=== PATIENT | female | born 1965 | race Caucasian/White ===

== ENCOUNTER → 2017-01-24 | Outpatient (CLI) | payer BC ==
[~2017-01-24] MED LIST: AMOX-355 PO; BCP PO; CETI10CA8 PO; DOCU-238 PO; DOCU100T7 PO; HYDR12.56 PO; LEVO1TAB72 PO; LORA10TA7 PO; METR500T21; MULT1CAP27 PO; OMEP20CA6 PO; PANT40TA2 PO; PANT40TA3 PO; SULF-222; SULF1TAB35
--- NOTE | 2017-01-24 15:00 | Diagnostic Imaging Report ---
PROCEDURE: CT head without contrast. TECHNIQUE: Multiple contiguous axial images were obtained through the brain without the use of intravenous contrast. INDICATION: Numbness and tingling . FINDINGS: There is no intracranial hemorrhage, edema or mass effect. The brain parenchyma appears unremarkable. No hydrocephalus. The visualized portions of the orbits and paranasal sinuses appear unremarkable. IMPRESSION: Unremarkable study. Dictated by: Dictated on workstation # [id number]
[2017-01-24 15:13] LABS: MEAN PLATELET VOLUME 8.4 FL (7.4-10.4); RED BLOOD COUNT 4.56 10^6/uL (4.35-5.85); RED CELL DISTRIBUTION WIDTH 13.1 % (10.0-14.5); WHITE BLOOD COUNT 7.3 10^3/uL (4.3-11.0)
[2017-01-24 15:17] LABS: BILIRUBIN,URINE NEGATIVE (NEGATIVE); KETONES,URINE 1+ (NEGATIVE); LEUKOCYTE ESTERASE ,URINE 1+ (NEGATIVE); NITRITE,URINE NEGATIVE (NEGATIVE); PH,URINE 5 (5-9); PROTEIN,URINE 2+ (NEGATIVE); UROBILINOGEN,URINE NORMAL (NORMAL)
[2017-01-24 15:32] LABS: ALANINE AMINOTRANSFERASE 13 U/L (0-55); ALBUMIN 4.5 GM/DL (3.2-4.5); ANION GAP 8 MMOL/L (5-14); ASPARTATE AMINO TRANSFERASE 15 U/L (5-34); BILIRUBIN,TOTAL 0.5 MG/DL (0.1-1.0); BLOOD UREA NITROGEN 14 MG/DL (7-18); BUN/CREATININE RATIO 18; CALCIUM 10.8 MG/DL (8.5-10.1); CARBON DIOXIDE 25 MMOL/L (21-32); CHLORIDE 107 MMOL/L (98-107); GFR ESTIMATED > 60; GLUCOSE 82 MG/DL (70-105); SODIUM 140 MMOL/L (135-145); TOTAL PROTEIN 8.5 GM/DL (6.4-8.2)
== END ==
LOC: RAD 14:17
PROVIDERS: ATTEND Physician Assistant
DX: R42 Dizziness and giddiness (principal); R51 Headache
CPT/HCPCS: 36415; 70450; 80053; 81000; 85027

== ENCOUNTER → 2017-02-01 | Outpatient (CLI) | payer BC ==
--- NOTE | 2017-02-04 10:36 | Diagnostic Imaging Report ---
Bilateral screening mammogram 2D views with tomosynthesis The current study was also evaluated with a Computer Aided Detection (CAD) system. Indication: Screening. No current complaints stated on the questionnaire. COMPARISON: 01/06/16. FINDINGS: The breasts are composed of heterogeneously dense parenchyma which may decrease mammographic sensitivity. No mass, architectural distortion or suspicious cluster of calcification seen. Benign-appearing calcifications are noted. Allowing for technique and positional differences, no suspicious change is seen. IMPRESSION: No significant change. ACR BI-RADS Category 2: Benign findings. Result letter will be mailed to the patient. Note: At least 10% of breast cancer is not imaged by mammography. Dictated by: Dictated on workstation # [id number]
== END ==
LOC: RAD 12:44
PROVIDERS: ATTEND Obstetrics & Gynecology
DX: Z12.31 Encounter for screening mammogram for malignant neoplasm of breast (principal)
CPT/HCPCS: 77067

== ENCOUNTER 2017-04-01 11:59 | Outpatient (CLI) | payer BC ==
[~2017-04-01] VITALS: Ht 162.6 cm; Wt 90.4 kg
[2017-04-01 12:06] VITALS: BP 153/93
[2017-04-01] MEDS ORDERED: DOCU100T2 PO (12:09)
[2017-04-01 13:01] LABS: BILIRUBIN,URINE NEGATIVE (NEGATIVE); KETONES,URINE NEGATIVE (NEGATIVE); LEUKOCYTE ESTERASE ,URINE 2+ (NEGATIVE); NITRITE,URINE NEGATIVE (NEGATIVE); PH,URINE 6 (5-9); PROTEIN,URINE NEGATIVE (NEGATIVE); UROBILINOGEN,URINE NORMAL (NORMAL)
[2017-04-01 13:01] LABS: BASOPHILS % (AUTO) 0 % (0-10); EOSINOPHILS # (AUTO) 0.1 10^3/uL (0.0-0.3); EOSINOPHILS % (AUTO) 1 % (0-10); LYMPHOCYTES # (AUTO) 1.5 X 10^3 (1.0-4.0); LYMPHOCYTES % (AUTO) 24 % (12-44); MEAN CORPUSCULAR HEMOGLOBIN 30 PG (25-34); MEAN CORPUSCULAR HGB CONC 33 G/DL (32-36); MEAN CORPUSCULAR VOLUME 90 FL (80-99); MEAN PLATELET VOLUME 8.9 FL (7.4-10.4); MONOCYTES # (AUTO) 0.3 X 10^3 (0.0-1.0); MONOCYTES % (AUTO) 4 % (0-12); NEUTROPHILS # (AUTO) 4.5 X 10^3 (1.8-7.8); NEUTROPHILS % (AUTO) 71 % (42-75); PLATELET COUNT 384 10^3/uL (130-400); RED CELL DISTRIBUTION WIDTH 14.2 % (10.0-14.5); WHITE BLOOD COUNT 6.4 10^3/uL (4.3-11.0)
[2017-04-01 13:08] LABS: WBC,URINE 50-100 /HPF
== END 2017-04-01 15:17 ==
LOC: PREOP 11:59
PROVIDERS: ATTEND Obstetrics & Gynecology
DX: Z01.812 Encounter for preprocedural laboratory examination (principal); Z11.2 Encounter for screening for other bacterial diseases; D06.9 Carcinoma in situ of cervix, unspecified; N39.3 Stress incontinence (female) (male); R82.99 Other abnormal findings in urine
CPT/HCPCS: 36415; 81000; 85025; 86850; 86900; 86901; 87081; 87088

== ENCOUNTER 2017-04-09 09:53 | Day surgery (SDC) | payer BC ==
[~2017-04-09] VITALS: Ht 162.6 cm; Wt 90.4 kg
[~2017-04-09 09:53] MED LIST changes: +DOCU100T2 PO
[2017-04-09 10:00] VITALS: BP 147/87
[2017-04-09] MEDS ORDERED: metroNIDAZOLE 500 MG/100 ML IVPB (PRE-MIX) IV ONE (10:15)
[2017-04-09] MEDS ORDERED: ceFAZolin 1 GM/NS 50 ML IVPB IV ONE ×2 (10:15)
[2017-04-09] MEDS ORDERED: CATHETER FLUSH 10 ML SYR IV PRN (10:15)
[2017-04-09] MEDS: LACTATED RINGERS 1,000 ML IV PRN ×3 (10:20→13:45)
--- NOTE | 2017-04-09 10:47 | Progress Note-Pre Operative ---
Pre-Operative Progress Note H&P Reviewed The H&P was reviewed, patient examined and no changes noted. Date Seen by Provider: Apr 09, 2017 Time Seen by Provider: 10:40 Date H&P Reviewed: Apr 09, 2017 Time H&P Reviewed: 10:40 Pre-Operative Diagnosis: CIS of cervix, stress incontinence HANY BEY DO Apr 09, 2017 10:47
[2017-04-09] MEDS ORDERED: FAMOTIDINE 20MG/2ML IV (PEPCID) ONE (11:03)
[2017-04-09] MEDS ORDERED: FAMOTIDINE 20MG/2ML IV (PEPCID) IV ONE (11:15)
[2017-04-09] MEDS ORDERED: DEXAMETHASONE 10 MG/ML (DECADRON) 1 ML VIAL ONE (12:25)
[2017-04-09] MEDS ORDERED: SEVOFLURANE (ULTANE) 15 ML INHAL SOLN ONE ×3 (12:25→15:20)
[2017-04-09] MEDS ORDERED: LIDOCAINE PF 2% 5 ML (XYLOCAINE) VIAL ONE (12:25)
[2017-04-09] MEDS ORDERED: ONDANSETRON 4 MG/2 ML (SDV) Z0FRAN ONE (12:25)
[2017-04-09] MEDS ORDERED: ROCURONIUM 50 MG/5 ML (ZEMURON) VIAL IV ONE ×2 (12:25→14:22)
[2017-04-09] MEDS ORDERED: proPOfol 200 MG/20 ML (DIPRIVAN) VIAL IV ONE (12:25)
[2017-04-09] MEDS ORDERED: MIDAZOLAM 2 MG/2 ML (VERSED) VIAL ONE (12:26)
[2017-04-09] MEDS ORDERED: fentaNYL INJECTION 250 MCG/5 ML AMP ONE (12:26)
[2017-04-09] MEDS ORDERED: BUP/EPI 0.5% 1:200,000 (MARCAINE) 10ML VIAL IJ ONE (12:28)
[2017-04-09] MEDS ORDERED: VASOPRESSIN INJECTION 20 UNIT/ML VIAL ONE (12:29)
[2017-04-09] MEDS ORDERED: NS (IVPB) 100 ML ONE (12:29)
[2017-04-09] MEDS ORDERED: ESTROGENS CONJ. CREAM 30 GM (PREMARIN) TUBE ONE (12:29)
[2017-04-09] MEDS ORDERED: ceFAZolin INJECTION 1,000 MG in NS (IVPB) 50 ML IV ONE (14:00)
[2017-04-09] MEDS ORDERED: metroNIDAZOLE 500MG/100ML IVPB 100 ML IV ONE (14:00)
[2017-04-09] MEDS ORDERED: NEOSTIGMINE (BLOXIVERZ ) 1 MG/1ML 10 ML VIAL ONE (14:23)
[2017-04-09] MEDS ORDERED: GLYCOPYRROLATE 0.2 MG/ML (ROBINUL) 2 ML VIAL ONE ×2 (14:23→15:54)
[2017-04-09] MEDS ORDERED: KETOROLAC 30 MG/ML VIAL ONE (15:17)
[2017-04-09] MEDS ORDERED: KETOROLAC 30 MG/ML VIAL IV PRN (15:30)
[2017-04-09] MEDS ORDERED: DOCUSATE SODIUM 100 MG (COLACE) CAP PO PRN (15:30)
[2017-04-09] MEDS ORDERED: ANTACID SUSP 30 ML UDC (MYLANTA) PO PRN (15:30)
[2017-04-09] MEDS ORDERED: SIMETHICONE 80 MG (MYLICON) CHEW PO PRN (15:30)
--- NOTE | 2017-04-09 15:35 | Operative Report ---
Operative Report Date of Procedure/Surgery Apr 09, 2017 Surgeon (s) HANY BEY DO Mine Deputy (s): Traci Eagle APRN Post-Operative Diagnosis CIS cervix, Extensive enteropelvic adhesions, probable previous PID with TOA VESTA Procedure Performed RaTH, BSO, BUTCH, solyx pubovaginal sling Description of Procedure Anesthesia Type: General Estimated blood loss (mL): 50 Specimen(s) collected/removed uterus, b ilateral tubes and ovaries Description of the Procedure After informed consent was obtained, patient was taken into the operating room where general anesthetic was found to be adequate. She was prepped and draped in the usual sterile fashion in the dorsal lithotomy position. A French catheter was placed. A speculum was placed in the vagina. The cervix was visualized and was prolapsed to the introitus. The anterior lip was grasped with a sharp toothed tenaculum. The uterus was sounded and depth was approximately 6 centimeters. I placed the Lesly device. And then set the Lesly to 6 cm and a 3.0 cm collar was advanced over the cervix. I inserted the Lesly without difficulty, inflating the balloon and securing it around the fornix of the cervix. The collar was then secured with sutures at 12 o'clock. Attention was then turned to the patient's abdomen. A supraumbilical incision was made about 8 mm. A Veress needle was inserted and I had difficulty confirming intraabdominal placement, but was eventually able to confirm with a drop in pressure and the saline drop test. I then insufflated the abdomen to a maximum of 15 mmHg with warmed CO2 gas. I then placed an 8 mm trocar and then the Da Marilyn camera and intraperitoneal placement was confirmed. I then determined the procedure could be continued robotically. The first robotic port was placed about 15 cm lateral to the right and left of the umbilical placement and slightly inferior. These are both 8 mm trocars. These were placed under direct visualization of the laparoscope. 0.25% Marcaine was injected prior to placement of all trocars. When all placements were confirmed, the patient was placed in steep Trendelenburg allowing adequate visualization and the robot was brought in for docking. The docking was accomplished without difficulty. A survey of the pelvis confirmed the above mentioned findings. There were adhesions in the left pelvis overlying the infundibulopelvic ligament that were taken down prior to starting the hysterectomy. These included the left tube and ovary and the colon. They also obliterated the culdesac but were filmy. She had been treated for diverticulitis within the last few months and are likely due to this. The left ovary appeared normal once the extensive adhesions were taken down, but because of the adherence to the colon, I suspect this was the suspected ovarian cyst. There was possible an old tuboovarian abscess as well with mild hydrosalpinx included in the tuboovarian, colon adhesions. These were all taken down bluntly and there was good hemostasis. Once I was able to visualize the round ligaments bilaterally and grasped them and cauterized with bipolar cautery and then cut with my jeff. At this point, I then did bilateral salpingoophorectomy. I clamped the infundibulopelvic ligaments bilaterally with the bipolar forceps. I sealed the vessel and transected bilaterally using the bipolar cautery and then cut with the monopolar jeff. I then moved my dissection to the posterior leaves of the broad ligament. I dissected the posterior leaves of the broad ligament off the uterine arteries skeletonizing them bilaterally. I then took a second clamp with the bipolar cautery and with the jeff, transected the vessels away from the lateral aspect to the cervical stroma. I dissected the anterior peritoneum off the lower uterine segment. I continually pushed the bladder back and I took excessively great care and I was eventually able to dissect the vesicouterine peritoneum off the lower uterine segment. I then dissected in a V fashion towards the midline between the uterosacral ligaments. This allowed me to skeletonize the uterine vessels bilaterally. The balloon on the LESLY was insufflated. This allowed me to see the LESLY circumferentially. I then performed a colpotomy anteriorly and then amputate with cervix away from the vaginal fornix. I then continued the colpotomy circumferentially. Once this was performed, the assistant professor of spanish removed the uterus through the vagina. A sponge was left in the vagina to maintain pneumoperitoneum. I then began closure of the vaginal cuff. The uterus was left in the vagina to maintain pneumoperitoneum. I closed the apices of the vaginal cuff with 2-0 Vicryl V lock sutures with a colposuspension through the uterosacral ligaments. This suspended the apices of the vaginal cuff. I extended this to the midline from both sides and overlapped the V lock sutures in the midline. Excellent closure is noted and hemostasis is achieved. All the needles were removed from the patient's abdomen. Patient was now repositioned for the vaginal portion of the procedure. The Lonestar retractor was placed and sutured into place. The anterior vaginal epithelium was grasped in the midline with an Allis clamp. The anterior vaginal epithelium was injected with dilute vasopressin. A 1 cm incision was made in the suburethral space with a scalpel about 1.5 cm from the urethral meatus. I dissected bilaterally to the obturator membranes and then inserted the Solyx bilaterally and then tightened under the midurethra. I did a cystoscopy which was negative. There was bilateral urethral efflux of urine. I then kept 300 ml in the bladder and did a Cred. There was minimal leakage. The sling laid gently under the urethra and was not too tight. There was no intravesicular pathology. The incision was closed with 4-0 Monocryl in a running fashion. French was reinserted. Vaginal pack with Estrace cream was placed. Patient was awakened and taken to the recovery room in stable condition. Following the case, instrument counts were correct. The patient was repositioned in the supine position and awakened from general anesthesia without difficulty. She was taken to recovery in stable condition. She will be observed overnight. Findings of the Procedure shortened cervix consistent with previous LEEP procedure. No obvious lesions. Normal uterus. Adhesions of the left pelvis and culdesac described in the operative portion of the dictation. Allergies and Home Medications Allergies Coded Allergies: No Known Drug Allergies (Unverified , 04/01/17) Home Medications Docusate Sodium 100 Mg Tablet, 100 MG PO DAILY PRN for CONSTIPATION-1ST LINE, ( Reported) Estradiol 1 Each Patch.tdwk, 1 EACH TD Weekly, #12 Ref 4 Prescribed by: HANY BEY on 04/10/17 0853 Ibuprofen 600 Mg Tablet, 600 MG PO Q6H PRN for PAIN-MILD, #60 Prescribed by: HANY BEY on 04/10/17 0830 Pantoprazole Sodium 40 Mg Tablet.dr, 40 MG PO DAILY, (Reported) Simethicone 80 Mg Tab.chew, 40 MG PO TID PRN for INDIGESTION, #60 Prescribed by: HANY BEY on 12/20/17 0830 [Hydrocodone Bit/Acetaminophen] 1 EA TABLET, 1-2 EA PO Q6H PRN for PAIN- MODERATE TO SEVERE, #30 Prescribed by: HANY BEY on 04/10/17829 HANY BEY DO Apr 09, 2017 15:35
[2017-04-09] MEDS ORDERED: morphine INJ 10 MG/ML 1ML (SYR OR VIAL) ONE (15:42)
[2017-04-09] MEDS ORDERED: ESTRADIOL 0.1 MG PATCH (CLIMARA) TD ONE (15:45)
[2017-04-09] MEDS ORDERED: ONDANSETRON 4 MG/2 ML (SDV) Z0FRAN IVP PRN (16:00)
[2017-04-09] MEDS ORDERED: morphine INJ 10 MG/ML 1ML (SYR OR VIAL) IVP PRN (16:00)
[2017-04-09] MEDS ORDERED: HYDROmorphone (DILAUDID) 2 MG/ML VIAL IVP PRN (16:00)
[2017-04-09 17:15] VITALS: BP 129/76
[2017-04-09] MEDS: LACTATED RINGERS 1,000 ML IV SCH (17:15)
[2017-04-09] MEDS: ONDANSETRON 4 MG/2 ML (SDV) Z0FRAN IV PRN (17:30)
[2017-04-09] MEDS: HYDROcodone/APAP 7.5 MG/325 MG (LORTAB, LORCET PLUS) TABLET PO PRN (18:31)
[2017-04-09 20:20] VITALS: BP 117/71
[2017-04-09] MEDS: KETOROLAC 30 MG/ML VIAL IVP PRN (22:50)
[2017-04-10 00:54] VITALS: BP 110/69
[2017-04-10] MEDS: HYDROcodone/APAP 7.5 MG/325 MG (LORTAB, LORCET PLUS) TABLET PO PRN (00:54)
[2017-04-10] MEDS: LACTATED RINGERS 1,000 ML IV SCH (00:54)
[2017-04-10 05:00] VITALS: BP 112/72
[2017-04-10] MEDS: KETOROLAC 30 MG/ML VIAL IVP PRN (05:05)
[2017-04-10] MEDS: ONDANSETRON 4 MG/2 ML (SDV) Z0FRAN IV PRN (06:19)
[2017-04-10] MEDS ORDERED: IBUPROFEN 600 MG (MOTRIN) TAB PO PRN (08:15)
--- NOTE | 2017-04-10 08:29 | Progress Note-Standard ---
Standard Progress Note Progress Notes/Assess & Plan Date Seen by Provider: Apr 10, 2017 Time Seen by Provider: 08:30 Progress/Assessment & Plan Vital Sign - Last 12Hours 04/10/17 04/10/17 04/10/17 00:54 01:27 05:00 Temp 99.0 98.7 Pulse 72 55 Resp 18 18 B/P (MAP) 110/69 (83) 112/72 (85) Pulse Ox 95 96 O2 Delivery Room Air Room Air Room Air Intake and Output 04/10/17 00:00 Intake Total 1673 ml Output Total 180 ml Balance 1493 ml Mild nausea but tolerating diet. No void since removal of catheter Plan dc home once voids. HANY BEY DO Apr 10, 2017 08:29
[2017-04-10] MEDS ORDERED: SIME80TA16 PO (08:30)
[2017-04-10] MEDS ORDERED: IBUP-1773 PO (08:30)
[2017-04-10] MEDS ORDERED: Hydrocodone Bit/Acetaminophen PO (08:30)
--- NOTE | 2017-04-10 08:32 | Discharge Inst-Women's Service ---
Discharge Inst-Women's Serv Depart Medication/Instructions New, Converted or Re-Newed RX: RX on Chart Final Diagnosis CIS of cervix VESTA Consults/Follow Up Additional Follow Up: Yes (1-2 weeks with Traci/Jagdish/ 10-12 weeks with Jagdish) Activity Activity: Activity as Tolerated Driving Instructions: No Driving for 1 Week NO SMOKING: NO SMOKING Nothing Inside Vagina: No Douching, No Deloit, No Tampons Diet Discharge Diet: No Restrictions Symptoms to Report to DrMoises: Swelling Increased, Bleeding Excessive, Pain Increased, Fever Over 101 Degrees F, Vaginal Bleeding Increase, Cramps in Feet or Legs, Vaginal Discharge Foul For Any Problems or Questions: Contact Your Physician Skin/Wound Care Infection Signs and Symptoms: Increased Redness, Foul Odor of Wound, Increased Drainage, Skin Itchy or Has a Rash, Increased Swelling Operative Area Clean and Dry: Keep Incision Clean/Dry, You May Remove Bandage ( keep dressings in place 3 days and then remove. If soiled or wet, remove and redress) Stitches/Lambert/Dermabond: Dermabond Bathing Instructions: HANY Colvin DO Apr 10, 2017 08:32
[2017-04-10 08:45] VITALS: BP 113/72
[2017-04-10] MEDS ORDERED: ESTR1PAT73 TD (08:53)
== END 2017-04-10 12:15 | disposition home or self-care (01) ==
LOC: SDC 09:53 → WS 16:14 → SDC 04-10 12:15
PROVIDERS: ATTEND Obstetrics & Gynecology
DX: N87.0 Mild cervical dysplasia (principal); D27.1 Benign neoplasm of left ovary; N80.0 Endometriosis of uterus; D25.1 Intramural leiomyoma of uterus; N39.46 Mixed incontinence; N73.6 Female pelvic peritoneal adhesions (postinfective); N92.1 Excessive and frequent menstruation with irregular cycle
CPT/HCPCS: 84703; 94664

== ENCOUNTER → 2018-02-07 | Outpatient (CLI) | payer BC ==
[~2018-02-07] MED LIST changes: +ESTR1PAT73 TD; +Hydrocodone Bit/Acetaminophen PO; +IBUP-1773 PO; +SIME80TA16 PO
--- NOTE | 2018-02-07 19:00 | Diagnostic Imaging Report ---
INDICATION: Routine screening. Comparison is made with prior mammogram from 02/01/2017 and 01/06/2016. 2-D and 3-D bilateral screening mammography was performed with CAD. The current study was also evaluated with a Computer Aided Detection (CAD) system. FINDINGS: Both breasts are heterogeneously dense, limiting the sensitivity of mammography. There are benign calcifications scattered throughout both breasts. No mass or malignant-appearing microcalcifications are seen. The axillae are unremarkable. IMPRESSION: No mammographic features suspicious for malignancy are identified. ACR BI-RADS Category 2: Benign findings. Result letter will be mailed to the patient. Note: At least 10% of breast cancer is not imaged by mammography. Dictated by: Dictated on workstation # [id number]
== END ==
LOC: RAD 11:12
PROVIDERS: ATTEND Obstetrics & Gynecology
DX: Z12.31 Encounter for screening mammogram for malignant neoplasm of breast (principal)
CPT/HCPCS: 77067

== ENCOUNTER → 2019-03-17 | Outpatient (CLI) | payer BC ==
[~2019-03-17] MED LIST changes: +METR-145; -METR500T21
--- NOTE | 2019-03-18 08:13 | Diagnostic Imaging Report ---
Digital mammogram. Bilateral screening This study was compared to the prior exams of 02/07/2018, 02/01/2017 and 01/06/2016. At this time there are no current complaints. The current study was also evaluated with a Computer Aided Detection (CAD) system. FINDINGS: The fibroglandular tissue in both breasts is heterogeneously dense. This does limit the sensitivity of this exam. Overall, there does not appear to have been any significant change when compared to the prior study. No primary or secondary sign of malignancy is noted. IMPRESSION: There is no radiographic evidence for malignancy. ACR BI-RADS Category 1: Negative. Result letter will be mailed to the patient. Note: At least 10% of breast cancer is not imaged by mammography. Dictated by: Dictated on workstation # [id number]
== END ==
LOC: RAD 12:43
PROVIDERS: ATTEND Obstetrics & Gynecology
DX: Z12.31 Encounter for screening mammogram for malignant neoplasm of breast (principal)
CPT/HCPCS: 77067

== ENCOUNTER → 2019-08-05 | Outpatient (CLI) | payer BC ==
--- NOTE | 2019-08-05 13:57 | Diagnostic Imaging Report ---
INDICATION: Shortness of breath COMPARISON: 02/26/2016 TECHNIQUE: Frontal and lateral radiographs of the chest dated 08/05/2019. FINDINGS: The cardiac silhouette is within normal limits in size. No significant pulmonary vascular congestion. The lungs are clear. No pleural effusion. No pneumothorax. No acute osseous abnormality. IMPRESSION: Stable examination without acute cardiopulmonary abnormality. Dictated by: Dictated on workstation # [id number]
== END ==
LOC: RAD 13:04
PROVIDERS: ATTEND Nurse Practitioner
DX: R06.02 Shortness of breath (principal)
CPT/HCPCS: 71046

== ENCOUNTER → 2019-08-10 | Outpatient (CLI) | payer BC ==
--- NOTE | 2019-08-10 10:49 | Diagnostic Imaging Report ---
INDICATION: Abdominal pain. PROCEDURE: Ultrasound abdomen complete. TECHNIQUE: Multiple Real-time grayscale images were obtained of the abdomen in various projections. FINDINGS: The liver measures 15 cm in length without evidence of focal lesion. The gallbladder has a normal appearance. There is no evidence of biliary ductal dilatation. No pancreatic, abdominal aortic, or inferior vena caval abnormality is identified. The spleen has a normal appearance and there is no evidence of free fluid. Note is made of an approximate 7.6 x 5.6 x 4.8 cm left renal cyst. IMPRESSION: No acute abnormality is seen within the abdomen. Note is made of a dominant left renal cyst. There is no free fluid or biliary ductal dilatation. Dictated by: Dictated on workstation # [id number]
== END ==
LOC: RAD 07:30
PROVIDERS: ATTEND Nurse Practitioner
DX: N28.1 Cyst of kidney, acquired (principal)
CPT/HCPCS: 76700

== ENCOUNTER 2019-08-13 08:03 | Outpatient (CLI) | payer BC ==
[~2019-08-13] VITALS: Ht 162 cm; Wt 72.0 kg
[2019-08-13] MEDS ORDERED: LORA10TA7 PO ×2 (09:35)
[2019-08-13] MEDS ORDERED: DOCU100C37 PO ×2 (09:35)
[2019-08-13] MEDS ORDERED: MULT-1136 PO ×2 (09:35)
== END 2019-08-13 10:04 | disposition home or self-care (01) ==
LOC: PREOP 08:03
PROVIDERS: ATTEND Surgery
DX: Z01.818 Encounter for other preprocedural examination (principal)

== ENCOUNTER 2019-08-14 09:28 | Day surgery (SDC) | payer BC ==
[2019-08-14] VITALS (13 sets, daily range): BP systolic 93–150; BP diastolic 54–77
[~2019-08-14] VITALS: Ht 162 cm; Wt 72.0 kg
[~2019-08-14 09:28] MED LIST changes: +DOCU100C37 PO; +MULT-1136 PO; +NS IV 500 ML 500 ML ONE
--- OUTSIDE RECORDS SUMMARY | 2019-08-14 09:33 | XMS REPORT ---
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 Phone HENRI RAMON Unavailable HANY BEY DO Unavailable Unavailable Allergies Normalized Allergy Reported Date of Reaction(s) Care Provider Facility Allergy Type classification allergen Allergy Onset DA (7 Unclassified No Known Drug 04-06-2015 - no information HANY BEY , Not Available sources.) Allergies DO (04802) Medications No Information Problems Active Problems Problem Normalized Date of Normalized Normalized Provider Fac ility Classification Problem(s) Problem Problem Problem Sta tus Onset/Resoluti Duration on NEGATED Endometriosis Chronic Active no name no infor mation no of uterus information (2 sources.) NEGATED Excessive and Chronic Active no name no infor mation no frequent information (2 menstruation sources.) with irregular cycle NEGATED Gastro-esophag Chronic Active MORRISKI KIDO , No t Available no eal reflux MD (13273) information (2 disease sources.) without esophagitis NEGATED Mixed Chronic Active no name no informatio n no incontinence information (2 sources.) Other Other Episodic Active HANY BEY , Not Avail able screening for screening DO (02668) suspected mammogram conditions Translations: (not mental [ ENCNTR disorders or SCREEN infectious MAMMOGRAM FOR disease) (11 MALIG[place] [place]] sources.) Past or Other Problems Problem Normalized Date of Normalized Normalized Provider Fac ility Classification Problem(s) Problem Problem Problem Sta tus Onset/Resoluti Duration on NEGATED Benign Episodic Completed no name no informatio n no neoplasm of information (2 left ovary sources.) 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 no inform ation cervix (3 situ of sources.) cervix, unspecified Conditions Dizziness and Episodic Completed SUZAN Not Nilda ilable associated giddiness ANDREWS ROBIN ([id number]) with dizziness or vertigo (1 source.) Immunizations Encounter for Episodic Completed no name no i nformation and screening screening for for infectious other disease (3 bacterial sources.) diseases NEGATED Female pelvic Episodic Completed no name no infor mation no peritoneal information (3 adhesions sources.) (postinfective ) Translations: [ SALPINGITIS AND OOPHORITIS, UNSPECIFIED] Headache, Headache Episodic Completed SUZAN Not Available including ANDREWS ROBIN (93431) migraine (1 source.) NEGATED Intramural Episodic Completed no name no informat ion no leiomyoma of information (2 uterus sources.) Unclassified Localized Episodic Completed HENRI RAMON , Not A vailable (1 source.) edema (82610) NEGATED Mild cervical Episodic Completed no name no infor mation no dysplasia information (2 sources.) Other Personal Episodic Completed PIERRE ALVAREZ , Not Avai lable gastrointestin history of (93754) al disorders other diseases (1 source.) of the digestive system Septicemia (1 Sepsis, no information no information HENRI Huynh , Not Available source.) unspecified (03402) organism Genitourinary Stress Episodic Completed no name no inform ation symptoms and incontinence ill-defined (female) conditions (3 (male) sources.) Translations: [ OTHER ABNORMAL FINDINGS IN URINE] NEGATED Unspecified no information no information HANY BEY , Not Available no ovarian cyst, DO (65868) information (1 left side source.) Procedures No Information Immunizations The data below is from unstructured sourcesNo immunization records. Results The data below is from unstructured sourcesNo known relevant diagnostic tests, laboratory data and/or discharge summary. Vital Signs The data below is from unstructured sources Vital Response Date/Time Temperature (Fahrenheit) 99.7 degree s F (97.6 - 99.5) 02/29/2016 11:51am Temperature (Calculated Celsius) 37. 24406 degrees C (36.4 - 37.5) 02/29/2016 8:20am Temperature Source Temporal 02/29/2016 11:51am Pulse Rate (adult) 56 bpm (60 - 90) 02/29/2016 11:51am Respiratory Rate 18 bpm (12 - 24) 02/29/2016 11:51am O2 Sat by Pulse Oximetry 98 % (88 - 100) 02/29/2016 11:51am Blood Pressure 141/75 mm Hg 02/29/2016 11:51am Blood Pressure Mean 97 mm Hg 02/29/2016 8:20am Pain Numeric Pain Scale 0-No Pain 02/29/2016 11:51am Height (Feet) 5 feet 09/2015 10:30pm Height (Inches) 4.00 inches 02/26/2016 10:30pm Height (Calculated Centimeters) 162. 946845 cm 02/26/2016 10:30pm Weight (Pounds) 191 pounds 02/26/2016 10:30pm Weight (Ounces) 4.0 oz 1 04/27/2015 10:30pm Weight (Calculated Grams) 59790.54 gm 02/26/2016 10:30pm Weight (Calculated Kilograms) 86.749 542 kilograms 02/26/2016 10:30pm Calculated BMI 32.8 09/2015 10:30pm Capillary Refill Capillary Refill Less Than 3 Seconds 02/27/2016 9:00am Vital Response Date/Time Temperature (Fahrenheit) 97.8 degree s F (97.6 - 99.5) 04/06/2015 1:45pm Temperature (Calculated Celsius) 36. 62067 degrees C (36.4 - 37.5) 04/06/2015 1:45pm Temperature Source Tympanic 04/06/2015 1:45pm Pulse Rate (adult) 66 bpm (60 - 90) 04/06/2015 1:45pm Respiratory Rate 20 bpm (12 - 24) 04/06/2015 1:45pm O2 Sat by Pulse Oximetry 98 % (88 - 100) 04/06/2015 1:45pm Blood Pressure 122/75 mm Hg 04/06/2015 1:45pm Pain Pain Intensity 0 2014 1:45pm Height (Feet) 5 feet 10:15am Height (Inches) 4.00 inches 04/06/2015 10:15am Height (Calculated Centimeters) 162. 388510 cm 04/06/2015 10:15am Weight (Pounds) 195 pounds 04/06/2015 10:15am Weight (Ounces) 8.0 oz 1 06/07/2014 10:15am Weight (Calculated Grams) 48448.309 gm 04/06/2015 10:15am Weight (Calculated Kilograms) 88.677 309 kilograms 04/06/2015 10:15am Calculated BMI 33.47 10:15am Vital Response Date/Time Temperature (Fahrenheit) 97.8 degree s F (97.6 - 99.5) 04/06/2015 1:45pm Temperature (Calculated Celsius) 36. 88024 degrees C (36.4 - 37.5) 04/06/2015 1:45pm Temperature Source Tympanic 04/06/2015 1:45pm Pulse Rate (adult) 66 bpm (60 - 90) 04/06/2015 1:45pm Respiratory Rate 20 bpm (12 - 24) 04/06/2015 1:45pm O2 Sat by Pulse Oximetry 98 % (88 - 100) 04/06/2015 1:45pm Blood Pressure 122/75 mm Hg 04/06/2015 1:45pm Pain Pain Intensity 0 2014 1:45pm Height (Feet) 5 feet 10:15am Height (Inches) 4.00 inches 04/06/2015 10:15am Height (Calculated Centimeters) 162. 158244 cm 04/06/2015 10:15am Weight (Pounds) 195 pounds 04/06/2015 10:15am Weight (Ounces) 8.0 oz 1 06/07/2014 10:15am Weight (Calculated Grams) 01997.309 gm 04/06/2015 10:15am Weight (Calculated Kilograms) 88.677 309 kilograms 04/06/2015 10:15am Calculated BMI 33.47 10:15am Interventions No Information Plan of Treatment The data below is from unstructured sources Discharge Date 02/29/16 12:01pm Disposition 01 HOME, SELF-CARE Instructions/Education Provided Dive rticulitis Prescriptions See Medication Section Care Plan and Goals See Discharge In structions Section Discharge Date 04/06/15 1:45pm Instructions/Education Provided COLO NOSCOPY EGD-ESOPHAGOGASTRODUODENOSCOPY Prescriptions See Medication Section Discharge Date 04/06/15 1:45pm Instructions/Education Provided COLO NOSCOPY EGD-ESOPHAGOGASTRODUODENOSCOPY Prescriptions See Medication Section Goals No Information Social History No Information Functional Status The data below is from unstructured sources Query Response Date Driss rded Patient Orientation Person Place Time Situation February 29, 2016 12:01pm Comprehension Ability Understands Co ncepts February 29, 2016 9:00am No functional status results. Mental Status No Information Encounters Encounter Normalized Encounter Encounter Diagnosis Care Provi patsy Organization Date Type NEGATED Patient encounter no information no name (no phone) no organization name 02-07-2018 (no phone) NEGATED Patient encounter no information no name (no phone) no organization name 04-09-2017 (no phone) - 04-10-2017 NEGATED Patient encounter no information no name (no phone) no organization name 04-01-2017 (no phone) - 04-01-2017 01-24-2017 Patient encounter no information no name (no phone) no organization name (no phone) NEGATED Patient encounter no information no name (no phone) no organization name 03-28-2016 (no phone) 01-06-2016 Patient encounter no information no name (no phone) no organization name (no phone) 12-21-2014 Patient encounter no information no name (no phone) no organization name (no phone) 08-14-2013 Patient encounter no information no name (no phone) no organization name (no phone) 08-13-2012 Patient encounter no information no name (no phone) no organization name (no phone) 03-17-2019 Patient encounter no information no name (no phone) no organization name procedure (no phone) 02-01-2017 Patient encounter no information no name (no phone) no organization name procedure (no phone) 08-13-2011 Patient encounter no information no name (no phone) no organization name procedure (no phone) no information Encounter for other no name (no phone) no org anization name preprocedural (no phone) examination no information Encounter for no name (no phone) no organiza tion name preprocedural (no phone) laboratory examination Medical Equipment No Information Payers No Information Advance Directives Directive Response Recor ded Date/Time Advance Directives No 11:15pm Health Care Power of Nanoelectronics Engineer No 02/26/16 11:15pm Organ Donor Yes 02/26/16 11:15pm Resuscitation Status Full Code 02/26/16 11:15pm Directive Response Recor ded Date/Time Advance Directives No 10:15am Health Care Power of Nanoelectronics Engineer No 04/06/15 10:15am Organ Donor Yes 04/06/15 10:15am Resuscitation Status Full Code 04/06/15 10:15am Discharge Instructions Patient Instructions Physician Instructions New, Converted or Re-Newed RX: Transmitted to Pharmacy Goal/Follow Up Appt: Dr Ramon in [address] Bey in 2 weeks for ovarian cyst/mass Dr Alvarez as needed [facility] For: Severe abdominal pain or fever Discharge Diet: Low Residue Activity as Tolerated: Yes Care Plan Goal:: Dr Ramon in 2 weeks as scheduledDr Bey in 2 weeks for ovarian cyst/mass Dr Alvarez as needed Patient Instructions Physician Instructions New, Converted, or Re-Newed RX: RX on Chart Follow Up 5yrs Activity as tolerated High Fiber Diet 25g or more per day Avoid Alcohol, Caffeine, Spicy [place] and Acid foods. Drink 64 fluid oz or more of fluids per day. Symptoms to Report: Fever over 101 degree F, Nausea/Vomiting If any problems/questions: Contact your physician or go to Emergency Room Additional Source Comments This clinical document has been generated using [facility] software that has been certified by the Office of the National Coordinator for Health Information Technology (ONC 15.99.04.3023.Diam.31.00.0.765742) and the National Committee for [employer] (NCQA, as an eMeasure certified technology). FOR RECORDS PERTAINING TO PATIENTS WHO ARE OR HAVE BEEN ENROLLED IN A CHEMICAL D EPENDENCY/SUBSTANCE ABUSE PROGRAM, SOME INFORMATION MAY BE OMITTED. This clinica l summary was aggregated from multiple sources. Caution should be exercised in using it in the provision of clinical care. This summary normalizes information from multiple sources, and as a consequence, information in this document may ma terially change the coding, format and clinical context of patient data. In nereyda tion, data may be omitted in some cases. CLINICAL DECISIONS SHOULD BE BASED ON T HE PRIMARY CLINICAL RECORDS. [employer] provides no warranty or guara ntee of the accuracy or completeness of information in this document.The followi ng information is based on time limited clinical information
--- OUTSIDE RECORDS SUMMARY | 2019-08-14 09:34 | XMS REPORT | Continuity of Care Document ---
Author Organization Unknown Address Unknown Phone Unavailable Allergies Active Description Code Type Severity Reaction Onset Reported/Identified Relationship to Patient Clinical Status Yes No Known Drug Allergies [id number] Drug Allergy Mild N/A 04/06/2015 Yes No Known Drug Allergies [id number] Drug Allergy Unknown N/A 04/01/2017 Medications There is no data. Problems Date Dx Coded Attending Type Code Diagnosis Diagnosed By 12/21/2014 Ot V76.12 12/21/2014 HANY BEY DO Ot V76.1 2 01/06/2015 HANY BEY DO Ot V76.1 2 04/05/2015 PIERRE STRAUSS MD Ot K21.9 04/05/2015 PIERRE STRAUSS MD Ot Z01.81 8 04/05/2015 PIERRE STRAUSS MD Ot Z87.19 04/06/2015 Ot 611.89 04/06/2015 Ot V76.12 04/06/2015 Ot 793.89 04/06/2015 PIERRE STRAUSS MD Ot K21.9 04/06/2015 PIERRE STRAUSS MD Ot Z01.81 8 04/06/2015 PIERRE STRAUSS MD Ot Z87.19 04/06/2015 PIERRE STRAUSS MD Ot K21.0 GASTRO-ESOPHAGEAL REFLUX DISEASE WITH ES 04/06/2015 PIERRE STRAUSS MD Ot K29.70 GASTRITIS, UNSPECIFIED, WITHOUT BLEEDING 04/06/2015 PIERRE STRAUSS MD Ot K29.80 DUODENITIS WITHOUT BLEEDING 04/06/2015 PIERRE STRAUSS MD Ot K44.9 DIAPHRAGMATIC HERNIA WITHOUT OBSTRUCTION 04/06/2015 PIERRE STRAUSS MD Ot K57.90 DVRTCLOS OF INTEST, PART UNSP, W/O PERF 04/06/2015 PIERRE STRAUSS MD, Ot K64.1 SECOND DEGREE HEMORRHOIDS 04/06/2015 PIERRE STRAUSS MD Ot Z80.0 FAMILY HISTORY OF MALIGNANT NEOPLASM OF 05/24/2015 Ot 611.89 05/24/2015 Ot V76.12 05/24/2015 Ot 793.89 01/06/2016 Ot 793.89 OT (ABN) FINDINGS ON RADIOLOGICAL EXAMI 01/10/2016 SOTERO DO HANY C Ot Z12.3 1 ENCNTR SCREEN MAMMOGRAM FOR MALIGNANT NE 01/12/2016 BEY DO HANY C Ot Z12.3 1 ENCNTR SCREEN MAMMOGRAM FOR MALIGNANT NE 01/12/2016 BEY DO HANY C Ot Z12.3 1 ENCNTR SCREEN MAMMOGRAM FOR MALIGNANT NE 01/15/2016 BEY DO HANY C Ot Z12.3 1 ENCNTR SCREEN MAMMOGRAM FOR MALIGNANT NE 01/18/2016 BEYHANY Calderón DO C Ot Z12.3 1 ENCNTR SCREEN MAMMOGRAM FOR MALIGNANT NE 02/28/2016 HENRI RAMON MD Ot K21.9 GASTRO-ESOPHAGEAL REFLUX DISEASE WITHOUT 02/28/2016 HENRI RAMON MD Ot K57.9 2 DVTRCLI OF INTEST, PART UNSP, W/O PERF O 02/28/2016 HENRI RAMON MD, Ot N39.0 URINARY TRACT INFECTION, SITE NOT SPECIF 02/29/2016 HENRI RAMON MD Ot A41.9 SEPSIS, UNSPECIFIED ORGANISM 02/29/2016 HENRI RAMON MD, Ot K21.9 GASTRO-ESOPHAGEAL REFLUX DISEASE WITHOUT 02/29/2016 HENRI RAMON MD, Ot K57.2 0 DVTRCLI OF LG INT W PERFORATION AND ABSC 02/29/2016 HENRI RAMON MD Ot K57.3 2 DVTRCLI OF LG INT W/O PERFORATION OR ABS 02/29/2016 HENRI RAMON MD Ot K57.9 0 DVRTCLOS OF INTEST, PART UNSP, W/O PERF 02/29/2016 HENRI RAMON MD Ot K57.9 2 DVTRCLI OF INTEST, PART UNSP, W/O PERF O 02/29/2016 HENRI RAMON MD Ot N39.0 URINARY TRACT INFECTION, SITE NOT SPECIF 02/29/2016 HENRI RAMON MD Ot N70.9 2 OOPHORITIS, UNSPECIFIED 02/29/2016 HENRI RAMON MD Ot N70.9 3 SALPINGITIS AND OOPHORITIS, UNSPECIFIED 02/29/2016 HENRI RAMON MD Ot R60.0 LOCALIZED EDEMA 03/01/2016 SOTERO DO, HANY C Ot Z12.3 1 ENCNTR SCREEN MAMMOGRAM FOR MALIGNANT NE 03/29/2016 BEY DO, HANY C Ot N83.2 02 UNSPECIFIED OVARIAN CYST, LEFT SIDE 04/11/2016 BEY DO, HANY C Ot N83.2 02 UNSPECIFIED OVARIAN CYST, LEFT SIDE 11/27/2016 Ot V76.12 OTH SCREEN MAMMO- MALIGN NEOPLASM OF GUI 01/24/2017 BEY DO, HANY C Ot Z12.3 1 ENCNTR SCREEN MAMMOGRAM FOR MALIGNANT NE 01/24/2017 BEY DO, HANY C Ot N83.2 02 UNSPECIFIED OVARIAN CYST, LEFT SIDE 01/25/2017 HEIDI BYNUMEN L Ot R 42 DIZZINESS AND GIDDINESS 01/25/2017 HEIDI BYNUMEN L Ot R 51 HEADACHE 02/04/2017 BEY DO, HANY C Ot Z12.3 1 ENCNTR SCREEN MAMMOGRAM FOR MALIGNANT NE 02/06/2017 HEIDI BYNUMEN L Ot R 42 DIZZINESS AND GIDDINESS 02/06/2017 HEIDI BYNUMEN L Ot R 51 HEADACHE 02/14/2017 SOTERO DO, HANY C Ot Z12.3 1 ENCNTR SCREEN MAMMOGRAM FOR MALIGNANT NE 04/01/2017 BEY DO, HANY C Ot 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, UNSPECIFIED 04/01/2017 BEY DO, HANY C Ot N39.3 STRESS INCONTINENCE (FEMALE) (MALE) 04/01/2017 BEY DO, HANY C Ot R82.9 9 OTHER ABNORMAL FINDINGS IN URINE 04/01/2017 BEY DO, HANY C Ot Z01.8 12 ENCOUNTER FOR PREPROCEDURAL LABORATORY E 04/01/2017 BEY DO, HANY C Ot Z11.2 ENCOUNTER FOR SCREENING FOR OTHER BACTER 04/04/2017 BEY DO, HANY C Ot 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, UNSPECIFIED 04/04/2017 BEY DO, HANY C Ot N39.3 STRESS INCONTINENCE (FEMALE) (MALE) 04/04/2017 BEY DO, HANY C Ot R82.9 9 OTHER ABNORMAL FINDINGS IN URINE 04/04/2017 BEY DO, HANY C Ot Z01.8 12 ENCOUNTER FOR PREPROCEDURAL LABORATORY E 04/04/2017 BEY AHNY C Ot Z11.2 ENCOUNTER FOR SCREENING FOR OTHER BACTER 04/07/2017 HANY BEY DO C Ot 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, UNSPECIFIED 04/07/2017 BEYHANY Calderón DO C Ot N39.3 STRESS INCONTINENCE (FEMALE) (MALE) 04/07/2017 BEYHANY Calderón DO C Ot R82.9 9 OTHER ABNORMAL FINDINGS IN URINE 04/07/2017 HANY BEY DO C Ot Z01.8 12 ENCOUNTER FOR PREPROCEDURAL LABORATORY E 04/07/2017 BEYStephane BALTAZAR HANY C Ot Z11.2 ENCOUNTER FOR SCREENING FOR OTHER BACTER 04/10/2017 SAMUEL BEY DOA C Ot D25.1 INTRAMURAL LEIOMYOMA OF UTERUS 04/10/2017 SOTERO BALTAZAR HANY C Ot D27.1 BENIGN NEOPLASM OF LEFT OVARY 04/10/2017 SOTERO BALTAZAR HANY C Ot N39.4 6 MIXED INCONTINENCE 04/10/2017 SOTERO BALTAZAR HANY C Ot N73.6 FEMALE PELVIC PERITONEAL ADHESIONS (POST 04/10/2017 SOTERO DO HANY C Ot N80.0 ENDOMETRIOSIS OF UTERUS 04/10/2017 BEY DO HANY C Ot N87.0 MILD CERVICAL DYSPLASIA 04/10/2017 SOTERO DO HANY C Ot N92.1 EXCESSIVE AND FREQUENT MENSTRUATION WITH 05/02/2017 SOTERO BALTAZAR HANY C Ot D25.1 INTRAMURAL LEIOMYOMA OF UTERUS 05/02/2017 SOTERO BALTAZAR HANY C Ot D27.1 BENIGN NEOPLASM OF LEFT OVARY 05/02/2017 SOTERO BALTAZAR HANY C Ot N39.4 6 MIXED INCONTINENCE 05/02/2017 SOTERO BALTAZAR HANY C Ot N73.6 FEMALE PELVIC PERITONEAL ADHESIONS (POST 05/02/2017 BEY DO HANY C Ot N80.0 ENDOMETRIOSIS OF UTERUS 05/02/2017 BEY DO HANY C Ot N87.0 MILD CERVICAL DYSPLASIA 05/02/2017 BEY DO HANY C Ot N92.1 EXCESSIVE AND FREQUENT MENSTRUATION WITH 09/09/2017 Ot V76.12 OTH SCREEN MAMMO- MALIGN NEOPLASM OF GUI 09/09/2017 SOTERO DO HANY C Ot V76.1 2 OTH SCREEN MAMMO-MALIGN NEOPLASM OF GUI 09/09/2017 SAMUEL BEY DOA C Ot V76.1 2 OTH SCREEN MAMMO-MALIGN NEOPLASM OF GUI 09/09/2017 PIERRE STRAUSS MD, Ot K21.9 GASTRO-ESOPHAGEAL REFLUX DISEASE WITHOUT 09/09/2017 PIERRE STRAUSS MD Ot Z01.81 8 ENCOUNTER FOR OTHER PREPROCEDURAL EXAMIN 09/09/2017 PIERRE STRAUSS MD, Ot Z87.19 PERSONAL HISTORY OF OTHER DISEASES OF TH 02/24/2018 BEYStephane BALTAZAR HANY C Ot Z12.3 1 ENCNTR SCREEN MAMMOGRAM FOR MALIGNANT NE 03/20/2019 BEY DO HANY C Ot Z12.3 1 ENCNTR SCREEN MAMMOGRAM FOR MALIGNANT NE 03/23/2019 SOTERO BALTAZAR HANY C Ot Z12.3 1 ENCNTR SCREEN MAMMOGRAM FOR MALIGNANT NE 04/01/2019 SOTERO BALTAZAR HANY C Ot Z12.3 1 ENCNTR SCREEN MAMMOGRAM FOR MALIGNANT NE 08/05/2019 SUZAN BYNUM Ot R 42 DIZZINESS AND GIDDINESS 08/05/2019 SUZAN BYNUM L Ot R 51 HEADACHE 08/05/2019 SOTERO BALTAZAR HANY C Ot Z12.3 1 ENCNTR SCREEN MAMMOGRAM FOR MALIGNANT NE 08/06/2019 ADELINA SANTILLAN LIFE SKILLS EDUCATOR Ot R06.02 SHORTNESS OF BREATH 08/10/2019 SUZAN BYNUM L Ot R 42 DIZZINESS AND GIDDINESS 08/10/2019 SUZAN BYNUM L Ot R 51 HEADACHE 08/10/2019 SOTERO BALTAZAR HANY C Ot Z12.3 1 ENCNTR SCREEN MAMMOGRAM FOR MALIGNANT NE 08/10/2019 ADELINA SANTILLAN R LIFE SKILLS EDUCATOR Ot R06.02 SHORTNESS OF BREATH 08/11/2019 JACQUE ADELINA R LIFE SKILLS EDUCATOR Ot R06.02 SHORTNESS OF BREATH 08/11/2019 JACQUE ADELINA R LIFE SKILLS EDUCATOR Ot R06.02 SHORTNESS OF BREATH 08/11/2019 DAWIT SANITLLANN R LIFE SKILLS EDUCATOR Ot R06.02 SHORTNESS OF BREATH 08/11/2019 ADELINA SANTILLAN R LIFE SKILLS EDUCATOR Ot N28.1 CYST OF KIDNEY, ACQUIRED 08/11/2019 ADELINA SANTILLAN LIFE SKILLS EDUCATOR Ot N28.1 CYST OF KIDNEY, ACQUIRED Procedures There is no data. Results Test Result Range Complete blood count (CBC) with automate d white blood cell (WBC) differential - 02/26/16 20:15 Blood leukocytes automated count (number/volume) 17.0 10*3/uL 4.3-11.0 Blood erythrocytes automated count (number/volume) 4.25 10*6/uL 4.35-5.85 Venous blood hemoglobin measurement (mass/volume) 13.2 g/dL 11.5-16.0 Blood hematocrit (volume fraction) 39 % 35-52 Automated erythrocyte mean corpuscular volume 91 [ foz_us] 80-99 Automated erythrocyte mean corpuscular h emoglobin (mass per erythrocyte) 31 pg 25-34 Automated erythrocyte mean corpuscular h emoglobin concentration measurement (mass/volume) 34 g/dL 32-36 Automated erythrocyte distribution width ratio 12. 9 % 10.0- 14.5 Automated blood platelet count (count/volume) 432 10*3/uL 130-400 Automated blood platelet mean volume measurement 8.8 [foz_us] 7.4-10.4 Automated blood neutrophils/100 leukocytes 87 % 42-75 Automated blood lymphocytes/100 leukocytes 7 % 12-44 Blood monocytes/100 leukocytes 5 % 0-12 Automated blood eosinophils/100 leukocytes 0 % 0-10 Automated blood basophils/100 leukocytes 0 % 0-10 Blood neutrophils automated count (number/volume) 14.8 10*3 1.8-7.8 Blood lymphocytes automated count (number/volume) 1.2 10*3 1.0-4.0 Blood monocytes automated count (number/volume) 0. 9 10*3 0.0-1.0 Automated eosinophil count 0.0 10*3/uL 0 .0-0.3 Automated blood basophil count (count/volume) 0.0 10*3/uL 0.0-0.1 Comprehensive metabolic panel - 02/26/16 20:15 Serum or plasma sodium measurement (moles/volume) 135 mmol/L 135-145 Serum or plasma potassium measurement (moles/volume) 4.0 mmol/L 3.6-5.0 Serum or plasma chloride measurement (moles/volume) 103 mmol/L 98-107 Carbon dioxide 21 mmol/L 21-32 Serum or plasma anion gap determination (moles/volume) 11 mmol/L 5-14 Serum or plasma urea nitrogen measurement (mass/volume ) 12 mg/dL 7-18 Serum or plasma creatinine measurement (mass/volume) 0.74 mg/dL 0.60-1.30 Serum or plasma urea nitrogen/creatinine mass ratio 16 NRG Serum or plasma creatinine measurement w ith calculation of estimated glomerular filtration rate > NRG Serum or plasma glucose measurement (mass/volume) 97 mg/dL 70-105 Serum or plasma calcium measurement (mass/volume) 10.3 mg/dL 8.5-10.1 Serum or plasma total bilirubin measurement (mass/volu me) 0.7 mg/dL 0.1-1.0 Serum or plasma alkaline phosphatase kiya surement (enzymatic activity/volume) 62 U/L 40-136 Serum or plasma aspartate aminotransfera se measurement (enzymatic activity/volume) 39 U/L 5-34 Serum or plasma alanine aminotransferase measurement (enzymatic activity/volume) 23 U/L 0-55 Serum or plasma protein measurement (mass/volume) 7.5 g/dL 6.4-8.2 Serum or plasma albumin measurement (mass/volume) 4.0 g/dL 3.2-4.5 Complete urinalysis with reflex to cultu re - 02/26/16 20:15 Urine color determination YELLOW NRG Urine clarity determination SLIGHTLY CLOUDY NRG Urine pH measurement by test strip 7 5-9 Specific gravity of urine by test strip 1.010 1.016-1.022 Urine protein assay by test strip, semi-quantitative 1+ NEGATIVE Urine glucose detection by automated test strip NE GATIVE NEGATIVE Erythrocytes detection in urine sediment by light micr oscopy 3+ NEGATIVE Urine ketones detection by automated test strip NE GATIVE NEGATIVE Urine nitrite detection by test strip NEGATIVE NEGATIVE Urine total bilirubin detection by test strip NEGA TIVE NEGATIVE Urine urobilinogen measurement by automated test strip (mass/volume) NORMAL NORMAL Urine leukocyte esterase detection by dipstick 3+ NEGATIVE Automated urine sediment erythrocyte cou nt by microscopy (number/high power field) [HPF] NRG Automated urine sediment leukocyte count by microscopy (number/high power field) [HPF] NRG Bacteria detection in urine sediment by light microsco py LARGE NRG Squamous epithelial cells detection in u rine sediment by light microscopy 5-10 NRG Crystals detection in urine sediment by light microsco py NONE NRG Casts detection in urine sediment by light microscopy NONE NRG Mucus detection in urine sediment by light microscopy SMALL NRG Complete urinalysis with reflex to culture YES NRG Blood manual differential performed dete ction - 02/26/16 20:15 Blood monocytes/100 leukocytes 2 % NRG Manual blood segmented neutrophils/100 leukocytes 86 % NRG Blood band neutrophils/100 leukocytes 0 % NRG Manual blood lymphocytes/100 leukocytes 11 % NRG Manual eosinophils/100 leukocytes in nose 0 % NRG Manual blood basophils/100 leukocytes 0 % NRG Blood lymphocytes variant/100 leukocytes 1 % NRG Blood erythrocyte morphology finding identification NORMAL NRG PT panel in platelet poor plasma by coag ulation assay - 02/26/16 20:15 Prothrombin time (PT) in platelet poor plasma by coagu lation assay 13.7 s 12.2-14.7 INR in platelet poor plasma or blood by coagulation as say 1.1 0.8-1.4 Activated partial thromboplastin time (a PTT) in platelet poor plasma bycoagulation assay - 02/26/16 20:15 Activated partial thromboplastin time (a PTT) in platelet poor plasma bycoagulation assay 26 s 24-35 Serum or plasma troponin i.cardiac measu rement (mass/volume) - 02/26/16 20:15 Serum or plasma troponin i.cardiac measurement (mass/v olume) < ng/mL <0.30 Bacterial urine culture - 02/26/16 20:15 URINE CULTURE RESULTS <10,000/ML NRG Bacterial blood culture - 02/26/16 20:15 Bacterial blood culture NG NRG Bacterial blood culture - 02/26/16 20:57 Bacterial blood culture NG NRG Blood lactic acid measurement (moles/vol ume) - 02/26/16 20:58 Blood lactic acid measurement (moles/volume) 1.2 m mol/L 0.5- 2.0 Complete blood count (CBC) with automate d white blood cell (WBC) differential - 02/27/16 05:53 Blood leukocytes automated count (number/volume) 13.2 10*3/uL 4.3-11.0 Blood erythrocytes automated count (number/volume) 3.67 10*6/uL 4.35-5.85 Venous blood hemoglobin measurement (mass/volume) 11.4 g/dL 11.5-16.0 Blood hematocrit (volume fraction) 34 % 35-52 Automated erythrocyte mean corpuscular volume 92 [ foz_us] 80-99 Automated erythrocyte mean corpuscular h emoglobin (mass per erythrocyte) 31 pg 25-34 Automated erythrocyte mean corpuscular h emoglobin concentration measurement (mass/volume) 34 g/dL 32-36 Automated erythrocyte distribution width ratio 12. 8 % 10.0- 14.5 Automated blood platelet count (count/volume) 343 10*3/uL 130-400 Automated blood platelet mean volume measurement 8.5 [foz_us] 7.4-10.4 Automated blood neutrophils/100 leukocytes 84 % 42-75 Automated blood lymphocytes/100 leukocytes 9 % 12-44 Blood monocytes/100 leukocytes 6 % 0-12 Automated blood eosinophils/100 leukocytes 1 % 0-10 Automated blood basophils/100 leukocytes 0 % 0-10 Blood neutrophils automated count (number/volume) 11.1 10*3 1.8-7.8 Blood lymphocytes automated count (number/volume) 1.2 10*3 1.0-4.0 Blood monocytes automated count (number/volume) 0. 8 10*3 0.0-1.0 Automated eosinophil count 0.1 10*3/uL 0 .0-0.3 Automated blood basophil count (count/volume) 0.0 10*3/uL 0.0-0.1 Comprehensive metabolic panel - 02/27/16 05:53 Serum or plasma sodium measurement (moles/volume) 138 mmol/L 135-145 Serum or plasma potassium measurement (moles/volume) 3.8 mmol/L 3.6-5.0 Serum or plasma chloride measurement (moles/volume) 111 mmol/L 98-107 Carbon dioxide 19 mmol/L 21-32 Serum or plasma anion gap determination (moles/volume) 8 mmol/L 5-14 Serum or plasma urea nitrogen measurement (mass/volume ) 9 mg/dL 7-18 Serum or plasma creatinine measurement (mass/volume) 0.64 mg/dL 0.60-1.30 Serum or plasma urea nitrogen/creatinine mass ratio 14 NRG Serum or plasma creatinine measurement w ith calculation of estimated glomerular filtration rate > NRG Serum or plasma glucose measurement (mass/volume) 97 mg/dL 70-105 Serum or plasma calcium measurement (mass/volume) 9.3 mg/dL 8.5-10.1 Serum or plasma total bilirubin measurement (mass/volu me) 0.7 mg/dL 0.1-1.0 Serum or plasma alkaline phosphatase kiya surement (enzymatic activity/volume) 47 U/L 40-136 Serum or plasma aspartate aminotransfera se measurement (enzymatic activity/volume) 22 U/L 5-34 Serum or plasma alanine aminotransferase measurement (enzymatic activity/volume) 17 U/L 0-55 Serum or plasma protein measurement (mass/volume) 5.8 g/dL 6.4-8.2 Serum or plasma albumin measurement (mass/volume) 3.2 g/dL 3.2-4.5 Blood CBC with ordered manual differenti al panel - 02/28/16 10:14 Blood leukocytes automated count (number/volume) 8.4 10*3/uL 4.3-11.0 Blood erythrocytes automated count (number/volume) 3.68 10*6/uL 4.35-5.85 Venous blood hemoglobin measurement (mass/volume) 11.3 g/dL 11.5-16.0 Blood hematocrit (volume fraction) 34 % 35-52 Automated erythrocyte mean corpuscular volume 93 [ foz_us] 80-99 Automated erythrocyte mean corpuscular h emoglobin (mass per erythrocyte) 31 pg 25-34 Automated erythrocyte mean corpuscular h emoglobin concentration measurement (mass/volume) 33 g/dL 32-36 Automated erythrocyte distribution width ratio 12. 9 % 10.0- 14.5 Automated blood platelet count (count/volume) 350 10*3/uL 130-400 Automated blood platelet mean volume measurement 8.3 [foz_us] 7.4-10.4 Automated blood neutrophils/100 leukocytes 83 % 42-75 Automated blood lymphocytes/100 leukocytes 11 % 12-44 Blood monocytes/100 leukocytes 5 % NRG Automated blood eosinophils/100 leukocytes 1 % 0-10 Automated blood basophils/100 leukocytes 0 % 0-10 Blood neutrophils automated count (number/volume) 6.9 10*3 1.8-7.8 Blood lymphocytes automated count (number/volume) 0.9 10*3 1.0-4.0 Blood monocytes automated count (number/volume) 0. 5 10*3 0.0-1.0 Automated eosinophil count 0.1 10*3/uL 0 .0-0.3 Automated blood basophil count (count/volume) 0.0 10*3/uL 0.0-0.1 Manual blood segmented neutrophils/100 leukocytes 83 % NRG Manual blood lymphocytes/100 leukocytes 12 % NRG Blood erythrocyte morphology finding identification NORMAL NR Whole blood basic metabolic panel - 12/05 10:14 Serum or plasma sodium measurement (moles/volume) 139 mmol/L 135-145 Serum or plasma potassium measurement (moles/volume) 3.9 mmol/L 3.6-5.0 Serum or plasma chloride measurement (moles/volume) 112 mmol/L 98-107 Carbon dioxide 18 mmol/L 21-32 Serum or plasma anion gap determination (moles/volume) 9 mmol/L 5-14 Serum or plasma urea nitrogen measurement (mass/volume ) 8 mg/dL 7-18 Serum or plasma creatinine measurement (mass/volume) 0.65 mg/dL 0.60-1.30 Serum or plasma urea nitrogen/creatinine mass ratio 12 NRG Serum or plasma creatinine measurement w ith calculation of estimated glomerular filtration rate > NRG Serum or plasma glucose measurement (mass/volume) 68 mg/dL 70-105 Serum or plasma calcium measurement (mass/volume) 9.3 mg/dL 8.5-10.1 Complete blood count (CBC) with automate d white blood cell (WBC) differential - 02/29/16 07:20 Blood leukocytes automated count (number/volume) 6.1 10*3/uL 4.3-11.0 Blood erythrocytes automated count (number/volume) 3.45 10*6/uL 4.35-5.85 Venous blood hemoglobin measurement (mass/volume) 10.7 g/dL 11.5-16.0 Blood hematocrit (volume fraction) 32 % 35-52 Automated erythrocyte mean corpuscular volume 93 [ foz_us] 80-99 Automated erythrocyte mean corpuscular h emoglobin (mass per erythrocyte) 31 pg 25-34 Automated erythrocyte mean corpuscular h emoglobin concentration measurement (mass/volume) 33 g/dL 32-36 Automated erythrocyte distribution width ratio 12. 7 % 10.0- 14.5 Automated blood platelet count (count/volume) 328 10*3/uL 130-400 Automated blood platelet mean volume measurement 8.8 [foz_us] 7.4-10.4 Automated blood neutrophils/100 leukocytes 74 % 42-75 Automated blood lymphocytes/100 leukocytes 17 % 12-44 Blood monocytes/100 leukocytes 7 % 0-12 Automated blood eosinophils/100 leukocytes 2 % 0-10 Automated blood basophils/100 leukocytes 0 % 0-10 Blood neutrophils automated count (number/volume) 4.5 10*3 1.8-7.8 Blood lymphocytes automated count (number/volume) 1.0 10*3 1.0-4.0 Blood monocytes automated count (number/volume) 0. 4 10*3 0.0-1.0 Automated eosinophil count 0.1 10*3/uL 0 .0-0.3 Automated blood basophil count (count/volume) 0.0 10*3/uL 0.0-0.1 Methicillin resistant Staphylococcus aur eus (MRSA) screening culture - 04/01/17 12:35 Methicillin resistant Staphylococcus aureus (MRSA) scr eening culture NEG NRG Blood type T Indirect antibody screen pa shana - 04/01/17 12:40 ABO+Rh group AP NRG Blood group antibody screen NEGATIVE NR G Complete urinalysis with reflex to cultu re - 04/01/17 12:45 Urine color determination YELLOW NRG Urine clarity determination CLEAR NR G Urine pH measurement by test strip 6 5-9 Specific gravity of urine by test strip 1.020 1.016-1.022 Urine protein assay by test strip, semi-quantitative NEGATIVE NEGATIVE Urine glucose detection by automated test strip NE GATIVE NEGATIVE Erythrocytes detection in urine sediment by light micr oscopy 2+ NEGATIVE Urine ketones detection by automated test strip NE GATIVE NEGATIVE Urine nitrite detection by test strip NEGATIVE NEGATIVE Urine total bilirubin detection by test strip NEGA TIVE NEGATIVE Urine urobilinogen measurement by automated test strip (mass/volume) NORMAL NORMAL Urine leukocyte esterase detection by dipstick 2+ NEGATIVE Automated urine sediment erythrocyte cou nt by microscopy (number/high power field) [HPF] NRG Automated urine sediment leukocyte count by microscopy (number/high power field) [HPF] NRG Bacteria detection in urine sediment by light microsco py FEW NRG Squamous epithelial cells detection in u rine sediment by light microscopy 10-25 NRG Crystals detection in urine sediment by light microsco py NONE NRG Casts detection in urine sediment by light microscopy NONE NRG Mucus detection in urine sediment by light microscopy MODERATE NRG Complete urinalysis with reflex to culture YES NRG Bacterial urine culture - 04/01/17 12:45 URINE CULTURE RESULTS <10,000/ML NRG Urine beta human chorionic gonadotropin (hCG) measurement - 04/09/17 10:05 Urine beta human chorionic gonadotropin (hCG) measurem ent NEGATIVE NEGATIVE Blood type T Indirect antibody screen pa shana - 04/09/17 10:05 ABO+Rh group AP NRG Transfusion band number [id number] NRG Blood group antibody screen NEGATIVE NR G Encounters ACCT No. Visit Date/Time Discharge Status Pt. Type Provider Facility Loc./Unit Complaint [id number] 08/10/2019 07:30:00 23:59:59 CLS Outpatient ADELINA SANTILLAN APRN [facility] RAD ABD PAIN [id number] 08/05/2019 13:04:00 23:59:59 CLS Outpatient ADELINA SANTILLAN APRN [facility] RAD SHORTNESS OF BR EATH [id number] 03/17/2019 12:43:00 23:59:59 CLS Outpatient HANY BEY DO [facility] RAD SCREENING [id number] 02/07/2018 11:12:00 23:59:59 CLS Outpatient HANY BEY DO [facility] RAD SCREENING [id number] 04/09/2017 09:53:00 017 12:15:00 DIS Outpatient HANY BEY DO [facility] SDC SEVERE CERVICAL DYSPLAS IA/STRESS INCONTINENCE [id number] 04/01/2017 11:59:00 017 15:17:00 DIS Outpatient HANY BEY DO [facility] PREOP SEVERE CERVICAL DYSPLAS IA/STRESS INCONTINENCE [id number] 02/01/2017 12:44:00 23:59:59 CLS Outpatient HANY BEY DO [facility] RAD SCREENING [id number] 01/24/2017 14:17:00 23:59:59 CLS Outpatient SUZAN BYNUM [facility] RAD DIZZINESS, SCAL P NUMBNESS, HEAD NUMBNESS [id number] 03/28/2016 12:30:00 016 23:59:59 CLS Outpatient HANY BEY DO [facility] RAD LT OVARIAN CYST [id number] 02/26/2016 22:15:00 016 12:01:00 DIS Inpatient YENNY CONWAY, HENRI Ayers [facility] 4TH SEPSIS, ACUTE DIVERTICU LITIS; FAILED OT PT ANTIBIO [id number] 01/06/2016 11:50:00 016 23:59:59 CLS Outpatient HANY BEY DO [facility] RAD BREAST CANCER SCREENING [id number] 04/06/2015 10:09:00 015 13:45:00 DIS Outpatient PIERRE STRAUSS MD [facility] SDC REFLEX/DIVERTICULITIS [id number] 04/05/2015 13:00:00 23:59:59 CLS Outpatient PIERRE STRAUSS MD [facility] PREOP REFLEX/DIVERITULITIS [id number] 12/21/2014 09:36:00 015 23:59:59 CLS Outpatient HANY BEY DO [facility] RAD SCREENING [id number] 08/14/2013 10:50:00 014 23:59:59 CLS Outpatient [facility] [facility] RAD SCREENING [id number] 11/27/2016 14:44:00 Document Registration [id number] 08/13/2012 14:29:00 Document Registration [id number] 08/13/2011 11:08:00 Document Registration [id number] 07/19/2010 09:52:00 Document Registration [id number] 07/06/2010 10:09:00 Document Registration
[2019-08-14] MEDS ORDERED: NS IV 500 ML 500 ML IV PRN (09:36)
[2019-08-14] MEDS ORDERED: fentaNYL INJECTION 100 MCG/2 ML AMP IVP ONE (09:45)
[2019-08-14] MEDS ORDERED: HURRICAINE EXT TUBE (BENZOCAINE) XX PRN (09:45)
[2019-08-14] MEDS ORDERED: LIDOCAINE JELLY 2% 6 ML SYRINGE MM PRN (09:45)
[2019-08-14] MEDS ORDERED: MIDAZOLAM 5 MG/5 ML (VERSED) VIAL ONE ×2 (10:29)
[2019-08-14] MEDS ORDERED: HURRICAINE EXT TUBE (BENZOCAINE) ONE (10:29)
[2019-08-14] MEDS ORDERED: fentaNYL INJECTION 100 MCG/2 ML AMP ONE ×2 (10:29)
[2019-08-14] MEDS ORDERED: LIDOCAINE JELLY 2% 6 ML SYRINGE ONE (10:29)
--- NOTE | 2019-08-14 10:53 | Conscious Sedation/ASA ---
Conscious Sedation Pre-Proced Time 10:00 ASA Score 2 For ASA 3 and 4: Consider anesthesia and medical clearance. Also, for patients with a history of failed moderate sedation consider anesthesia. Airway Lungs Heart ASA score ASA 1: a normal healthy patient ASA 2: a patient with a mild systemic disease (mid diabetes, controlled hypertension, obesity ASA 3: a patient with a severe systemic disease that limits activity (angina, COPD, prior Myocardial infarction) ASA 4: a patient with an incapacitating disease that is a constant threat to life (CHF, renal failure) ASA 5: a moribund patient not expected to survive 24 hrs. (ruptured aneurysm) ASA 6: a declared brain- patient whose organs are being harvested. For emergent operations, add the letter E after the classification Mallampati Classification Grade 2 Sedation Plan Analgesia, Amnesia, Plan communicated to team members, Discussed options with patient/fam, Discussed risks with patient/fam The patient is an appropriate candidate to undergo the planned procedure, sedation, and anesthesia. The patient immediately re-assessed prior to indication. PIERRE STRAUSS MD Aug 14, 2019 10:53
--- NOTE | 2019-08-14 10:54 | Progress Note-Pre Operative ---
Pre-Operative Progress Note H&P Reviewed The H&P was reviewed, patient examined and no changes noted. Date Seen by Provider: Aug 14, 2019 Time Seen by Provider: 10:00 Date H&P Reviewed: Aug 14, 2019 Time H&P Reviewed: 10:00 Pre-Operative Diagnosis: GERD, family hx colon ca PIERRE STRAUSS MD Aug 14, 2019 10:54
[2019-08-14] MEDS: MIDAZOLAM 5 MG/5 ML (VERSED) VIAL IV PRN ×4 (10:55→11:09)
--- NOTE | 2019-08-14 10:55 | Discharge Inst-Surgical ---
D/C Lap Instructions-CARLOS A Follow Up Activity as tolerated High Fiber Diet 25g or more per day Avoid Alcohol, Caffeine, Spicy [place] and Acid foods. Drink 64 fluid oz or more of fluids per day. Symptoms to Report: Fever over 101 degree F, Nausea/Vomiting If any problems/questions: Contact your physician or go to Emergency Room PIERRE STRAUSS MD Aug 14, 2019 10:55
[2019-08-14] MEDS ORDERED: ONDANSETRON 4 MG/2 ML (SDV) Z0FRAN IVP PRN (11:00)
[2019-08-14] MEDS ORDERED: morphine INJ 10 MG/ML 1ML (SYR OR VIAL) IVP PRN ×2 (11:00)
[2019-08-14] MEDS ORDERED: ACETAMINOPHEN 325 MG TABLET PO PRN (11:00)
[2019-08-14] MEDS ORDERED: HYDROcodone/APAP 5 MG/325 MG (LORTAB) TAB PO PRN (11:00)
--- NOTE | 2019-08-14 12:00 | Progress Note-Post Operative ---
Post-Operative Progess Note Surgeon (s)/Choir Teacher (s) Surgeon PIERRE STRAUSS MD Choir Teacher: none Pre-Operative Diagnosis GERD, family hx colon ca Post-Operative Diagnosis reflux esophagitis(stage 2), small HH(1.5cm), mild-moderate gastritis. chronic stage 2 ext and int hemorrhoids, mild sigmoid diverticulosis. Procedure & Operative Findings Date of Procedure 08/14/19 Procedure Performed/Findings EGD with bx. Colonoscopy. Anesthesia Type cs Estimated Blood Loss Estimated blood loss (mL): minimal Specimens/Packing Specimens Removed ge jxn, antrum PIERRE STRAUSS MD Aug 14, 2019 12:00
--- NOTE | 2019-08-14 16:12 | OPERATIVE REPORT ---
DATE OF SERVICE: 08/14/2019 ATTENDING PRIMARY CARE PHYSICIAN: Dr. Luís Quintanilla. PREOPERATIVE DIAGNOSES: Gastroesophageal reflux disease, family history of colon cancer. POSTOPERATIVE DIAGNOSES: Reflux esophagitis stage II, small hiatal hernia 1.5 cm in size, mild to moderate gastritis. Chronic stage II external and internal hemorrhoids, mild sigmoid diverticulosis. PROCEDURE: EGD with biopsy, colonoscopy. SURGEON: Tariq Alvarez MD. ANESTHESIA: Conscious sedation. ESTIMATED BLOOD LOSS: Minimal. FINDINGS: Reflux esophagitis stage II, small hiatal hernia 1.5 cm in size, mild to moderate gastritis. Chronic stage II external and internal hemorrhoids, mild sigmoid diverticulosis. DISPOSITION: The patient tolerated the procedure well. INDICATIONS: The patient is a 54-year-old female who has had history of gastroesophageal reflux disease; however, she states that her symptoms have worsened and has had this epigastric crampy pain on an intermittent basis. She states that she has slightly changed her diet and is doing a ketogenic diet; however, does try to avoid acidic foods. She also did report noticing some slightly darker stools in the past few weeks as well. She is also in need of a followup screening colonoscopy. She does have a first-degree family history of colon cancer with her father having the disease. She does report that she does have some intermittent episodes of constipation. DESCRIPTION OF PROCEDURE: The patient was brought to the endoscopy suite, laid in the left lateral decubitus position with head elevated. After adequate IV pain and sedative medications and conscious sedation anesthesia, the mouthpiece was applied. The endoscope was placed in the mouth, visualizing the pharynx and hypopharyngeal region. Vocal cords, epiglottis and vallecula identified and appeared to be normal. The endoscope was then gently intubated into the esophageal opening and esophagus insufflated. The endoscope was then advanced through the first, second and third portion of the esophagus at the level of the GE junction, reflux esophagitis stage II identified. There were no ulcers or strictures identified in this region. A biopsy was taken with forceps with visualization of good hemostasis. The endoscope was then advanced into the stomach. The endoscope retroflexed, visualizing a small hiatal hernia approximately 1.5 cm in size. There was a mild to moderate gastritis. No ulcers, polyps, or any neoplasms identified. A biopsy was taken of the antrum to rule out H. pylori with visualization of good hemostasis. The endoscope was then advanced to the pylorus and the first and second portion of the duodenum, which appeared normal with no distal obstructions. Under the same anesthesia, we then proceeded with colonoscopy portion of the procedure. A digital rectal examination was performed, which revealed mild chronic stage II external and internal hemorrhoids, not actively edematous nor inflamed and no bleeding. Normal sphincter tone was felt and there were no palpable masses. The endoscope was then intubated to anus and rectum gently insufflated. The endoscope was then advanced through the valves of [place]ino[place] of the rectum with no polyps or any neoplasms identified. Through the sigmoid colon, a mild sigmoid diverticulosis identified. The endoscope was then advanced into the descending, transverse and ascending colon to the cecum. These segments were normal. There were no polyps or any neoplasms identified throughout the colon or rectum. The endoscope was then slowly withdrawn while taking a second look and suctioning of residual air with no additional findings. The patient tolerated the procedure well. For her epigastric discomfort, we will have her continue with the necessary lifestyle and diet accommodation including small and more frequent meals, avoidance of eating at night as well as head elevation while lying supine. She also needs to avoid caffeinated beverages, spicy, greasy and acidic foods and continue to take Protonix daily. She did recently undergo a gallbladder ultrasound and this was normal; however, we feel that her symptoms may continue to be related to her gallbladder from biliary dyskinesia and we will get a HIDA scan. From a colonoscopy standpoint, this was essentially normal and we will recommend a high fiber diet with 25 grams of fiber daily as well as significant amounts of water to promote soft stools on a daily basis. We will have her proceed with followup colonoscopy in 5 years. Job ID: [id number] DocumentID: [id number] Dictated Date: 08/14/2019 12:07:56 Physics Teacher Date: 08/14/2019 16:10:58 Dictated By: MD BRADLY COREY
== END 2019-08-14 12:00 | disposition home or self-care (01) ==
LOC: ENDO 09:28
PROVIDERS: ATTEND Surgery
DX: K21.0 Gastro-esophageal reflux disease with esophagitis (principal); K29.50 Unspecified chronic gastritis without bleeding; K44.9 Diaphragmatic hernia without obstruction or gangrene; K64.4 Residual hemorrhoidal skin tags; K64.1 Second degree hemorrhoids; K57.30 Diverticulosis of large intestine without perforation or abscess without bleeding; K59.00 Constipation, unspecified; Z88.0 Allergy status to penicillin; Z79.899 Other long term (current) drug therapy; Z90.710 Acquired absence of both cervix and uterus; Z90.89 Acquired absence of other organs; Z82.49 Family history of ischemic heart disease and other diseases of the circulatory system; Z82.3 Family history of stroke

== ENCOUNTER → 2019-08-21 | Outpatient (CLI) | payer BC ==
[~2019-08-21] MED LIST changes: +CATHETER FLUSH 10 ML SYR IV PRN; -NS IV 500 ML 500 ML ONE
--- NOTE | 2019-08-21 12:50 | Diagnostic Imaging Report ---
INDICATION: Right upper quadrant pain. Patient was administered 5.2 mCi technetium 99m Choletec intravenously and imaging over the abdomen was performed. After 60 minutes patient ingested one can of ensure and a gallbladder ejection fraction was calculated. Homogeneous uptake of activity by the liver is noted. This prompt excretion of activity into the common duct and gallbladder. Normal passage of activity into the small bowel is seen. Gallbladder ejection fraction is 97%. IMPRESSION: 1. Patent cystic duct and common bile duct. 2. Gallbladder ejection fraction of 97%. Dictated by: Dictated on workstation # [id number]
== END ==
LOC: CARD 09:12
PROVIDERS: ATTEND Surgery
DX: R10.11 Right upper quadrant pain (principal); R11.2 Nausea with vomiting, unspecified
CPT/HCPCS: 78227

== ENCOUNTER → 2020-03-21 | Outpatient (CLI) | payer BC ==
[~2020-03-21] MED LIST changes: -CATHETER FLUSH 10 ML SYR IV PRN; -PANT40TA3 PO; +PANT40TA52 PO
--- NOTE | 2020-03-21 11:30 | Diagnostic Imaging Report ---
INDICATION: Routine screening. Comparison is made with prior mammogram 03/17/2019 and 02/07/2018. 2-D and 3-D bilateral screening mammography was performed with CAD. Both breasts are heterogeneously dense, limiting the sensitivity of mammography. There are scattered benign calcifications in both breasts. No mass or malignant appearing microcalcifications are seen. Axillae are unremarkable. IMPRESSION: BI-RADS Category 2 No mammographic features suspicious for malignancy are identified. ACR BI-RADS Category 2: Benign findings. Result letter will be mailed to the patient. Note: At least 10% of breast cancer is not imaged by mammography. Dictated by: Dictated on workstation # [id number]
== END ==
LOC: RAD 08:00
PROVIDERS: ATTEND Obstetrics & Gynecology
DX: Z12.31 Encounter for screening mammogram for malignant neoplasm of breast (principal)
CPT/HCPCS: 77063; 77067

== ENCOUNTER → 2020-05-09 | Outpatient (CLI) | payer BC ==
--- NOTE | 2020-05-09 14:59 | Diagnostic Imaging Report ---
EXAMINATION: US Retroperitoneal Complete. TECHNIQUE: Multiple real-time grayscale images were obtained over the kidneys in various projections bilaterally. HISTORY: Left renal lesion evaluation. COMPARISON: Abdominal ultrasound 08/10/2019. FINDINGS: The right kidney demonstrates normal echogenicity and cortical thickness. The right kidney measures 10.2 x 4.0 x 5.0 cm. No hydronephrosis. The left kidney demonstrates normal echogenicity and cortical thickness. Slightly decreased size of the dominant left renal cyst measuring up to 6.0 cm without solid components or internal vascularity. No visualized septations. The left kidney measures 9.3 x 4.6 x 3.8 cm. No hydronephrosis. The urinary bladder is normal. Bilateral ureteral jets are seen. IMPRESSION: 1. Slightly decreased size of the dominant unilocular left renal cyst. 2. Kidneys are otherwise unremarkable without hydronephrosis. Dictated by: Dictated on workstation # [id number]
== END ==
LOC: RAD 13:15
PROVIDERS: ATTEND Internal Medicine
DX: N28.1 Cyst of kidney, acquired (principal)
CPT/HCPCS: 76770

== ENCOUNTER → 2021-03-22 | Outpatient (CLI) | payer BC ==
[~2021-03-22] MED LIST changes: -DOCU-238 PO; +DOCU-26 PO
--- NOTE | 2021-03-23 11:16 | Diagnostic Imaging Report ---
INDICATION: Routine screening. COMPARISON is made with prior mammograms from 03/21/2020 and 03/17/2019. 2-D and 3-D bilateral screening mammography was performed with CAD. Both breasts are heterogeneously dense, limiting the sensitivity of mammography. Scattered benign calcifications are again noted. No mass or malignant-appearing microcalcifications are seen. Axillae are unremarkable. IMPRESSION: BI-RADS Category 2 No mammographic features suspicious for malignancy are identified. ACR BI-RADS Category 2: Benign findings. Result letter will be mailed to the patient. Note: At least 10% of breast cancer is not imaged by mammography. Dictated by: Dictated on workstation # [id number]
== END ==
LOC: RAD 11:30
PROVIDERS: ATTEND Obstetrics & Gynecology
DX: Z12.31 Encounter for screening mammogram for malignant neoplasm of breast (principal)
CPT/HCPCS: 77063; 77067

== ENCOUNTER → 2022-12-11 | Outpatient (CLI) | payer BC ==
--- NOTE | 2022-12-11 09:41 | Diagnostic Imaging Report ---
INDICATION: Postmenopausal state. COMPARISON: None available FINDINGS: AP Spine L2-L4: [BMD (g/cm2): 1.052] [T-Score: -1.2] [Z-Score: -0.5] [BMD Previous: na] [BMD % Change: na] LT Hip Neck: [BMD (g/cm2): 0.897] [T-Score: -1.0] [Z-Score: -0.1] LT Hip Total: [BMD (g/cm2):0.907] [T-Score:-0.8] [Z-Score: -0.2] [BMD Previous: na] [BMD % Change: na] RT Hip Neck: [BMD (g/cm2):0.880] [T-Score:-1.1] [Z-Score:-0.2] RT Hip Total: [BMD (g/cm2):0.952] [T-score:-0.4] [Z-Score:0.1] [BMD Previous:na] [BMD % Change:na] *Indicates significant change from prior examination based on 95% confidence level. World Health Organization criteria for BMD interpretation classify patients as Normal (T-score at or above -1.0), Osteopenic (T-score between -1.0 and -2.5) or Osteoporotic (T-score at or below -2.5). LIMITATIONS AND MODIFICATION: None. FRACTURE RISK (FRAX SCORE): The ten year probability of (%): Major Osteoporotic Fracture: [6.8] Hip Fracture: [0.4] IMPRESSION: 1. Osteopenia (Low bone mass). 2. Baseline examination. 3. See below National Osteoporosis Foundation guidelines on when to potentially initiate pharmacologic therapy. Based on the National Osteoporosis Foundation Guidelines, pharmacologic treatment should be initiated in any of the following, unless clinical conditions suggest otherwise: * Any patient with prior fragility fracture of the hip or vertebrae. A spine fracture indicates 5X risk for subsequent spine fracture and 2X risk for subsequent hip fracture. * Osteoporosis (T-score <-2.5). * Postmenopausal women and men age 50 and older with low bone mass/osteopenia (T-score between -1.0 and -2.5) by DXA and 10-year major osteoporotic fracture greater than 20% or a 10-year probability of hip fracture greater than 3%. These fracture risks are supplied above in the FRAX score, if applicable. * Clinician judgement and/or patient preferences may indicate treatment for people with 10-year fracture probabilities above or below these levels. Dictated by: Dictated on workstation # [id number]
--- NOTE | 2022-12-11 15:28 | Diagnostic Imaging Report ---
Indication: Routine screening. Comparison is made with prior mammograms 03/22/2021 and 03/21/2020. 2-D and 3-D bilateral screening mammography was performed with CAD. Both breasts are heterogeneously dense, limiting the sensitivity of mammography. The parenchymal pattern is stable. No mass or malignant-appearing microcalcifications are seen. There are scattered benign calcifications bilaterally. Axillae are unremarkable. IMPRESSION: BI-RADS Category 2 No mammographic features suspicious for malignancy are identified. ACR BI-RADS Category 2: Benign findings. Result letter will be mailed to the patient. Note: At least 10% of breast cancer is not imaged by mammography. Dictated by: Dictated on workstation # [id number]
== END ==
LOC: RAD 08:30
PROVIDERS: ATTEND Obstetrics & Gynecology
DX: Z12.31 Encounter for screening mammogram for malignant neoplasm of breast (principal); M85.80 Other specified disorders of bone density and structure, unspecified site; Z78.0 Asymptomatic menopausal state
CPT/HCPCS: 77063; 77067; 77080